=== PATIENT | male | born 1995 | race Caucasian/White ===

== ENCOUNTER 2017-10-16 05:11 | Emergency (ER) | payer MEDICAID ==
[~2017-10-16] VITALS: Ht 177.8 cm; Wt 68.2 kg
[2017-10-16 05:19] VITALS: Ht 177.8 cm; Wt 68.2 kg
[2017-10-16 05:53] LABS: BASOPHILS 0.2 % (0-2); EOSINOPHILS 3.3 % (0-7); HEMATOCRIT 44.3 % (42.0-54.0); HEMOGLOBIN 15.6 g/dL (13.5-17.5); IMMATURE GRANULOCYTES 0.2 % (0-5); LYMPHOCYTES 13.8 % (15-50); MCH 32.6 pg (26.0-34.0); MCHC 35.2 g/dL (31.0-37.0); MCV 92.5 fL (80.0-100.0); MEAN PLATELET VOLUME 11.2 fL (7.4-10.4); MONOCYTES 8.9 % (2-11); NEUTROPHILS 73.6 % (40-80); PLATELET COUNT 228 10x3/uL (130-400); RBC 4.79 10x6/uL (4.20-6.10); RDW 12.4 % (11.5-14.5); WBC 11.1 10x3/uL (4.8-10.8)
[2017-10-16 06:19] LABS: ALBUMIN 3.9 g/dL (3.4-5.0); ALKALINE PHOSPHATASE 57 U/L (46-116); ALT (SGPT) 28 U/L (10-68); AMYLASE - SERUM 35 U/L (25-115); BILIRUBIN - TOTAL 0.67 mg/dL (0.2-1.3); CALC OSMOLALITY 278 mosm/kg (275-300); CALCIUM 8.5 mg/dL (8.5-10.1); CHLORIDE - SERUM 104 mmol/L (98-107); GLUCOSE 127 mg/dL (74-106); LIPASE 98 U/L (73-393); POTASSIUM - SERUM 3.3 mmol/L (3.5-5.1); PROTEIN - SERUM 6.9 g/dL (6.4-8.2); SODIUM 139 mmol/L (136-145); UREA NITROGEN 11 mg/dL (7-18); eGFR NON AFRICAN AMERICAN > 90 mL/min (90-120)
[2017-10-16 07:15] LABS: APPEARANCE CLEAR (CLEAR); BILIRUBIN NEGATIVE (NEGATIVE); COLOR DK YELLOW (YELLOW); GLUCOSE NEGATIVE (NEGATIVE); KETONE MODERATE mg/dL (NEGATIVE); NITRITE NEGATIVE (NEGATIVE); PROTEIN NEGATIVE (NEGATIVE); SPECIFIC GRAVITY 1.025 (1.005-1.020); UROBILINOGEN NORMAL (NORMAL)
[2017-10-16] MEDS ORDERED: LEVAQUIN500 MG PO (09:09)
[2017-10-16] MEDS ORDERED: HYDROCODON-ACE1 EAC7 PO (09:09)
[2017-10-16 10:55] VITALS: BP 106/61
== END 2017-10-16 11:13 | disposition home or self-care (01) ==
LOC: D.ER 05:11
PROVIDERS: Family Medicine
DX: K52.9 Noninfective gastroenteritis and colitis, unspecified (principal); F17.200 Nicotine dependence, unspecified, uncomplicated

== ENCOUNTER 2018-02-17 09:51 | Emergency (ER) | payer MEDICAID ==
[~2018-02-17] VITALS: Ht 177.8 cm; Wt 65.9 kg
[~2018-02-17 09:51] MED LIST: HYDROCODON-ACE1 EAC7 PO; LEVAQUIN500 MG PO
[2018-02-17 09:54] VITALS: Ht 177.8 cm; Wt 65.9 kg
[2018-02-17] MEDS ORDERED: MOTRIN600 MG PEG (11:18)
[2018-02-17 11:57] VITALS: BP 97/56
== END 2018-02-17 11:50 | disposition home or self-care (01) ==
LOC: D.ER 09:51
DX: F07.81 Postconcussional syndrome (principal); W17.89XA Other fall from one level to another, initial encounter; Y93.89 Activity, other specified; Y92.89 Other specified places as the place of occurrence of the external cause

== ENCOUNTER 2019-02-23 08:45 | Emergency (ER) | payer SELFPAY ==
[~2019-02-23] VITALS: Ht 177.8 cm; Wt 68.2 kg
[~2019-02-23 08:45] MED LIST changes: +MOTRIN600 MG PEG
[2019-02-23 08:57] VITALS: Ht 177.8 cm; Wt 68.2 kg
[2019-02-23 10:56] VITALS: BP 118/71
== END 2019-02-23 10:59 | disposition home or self-care (01) ==
LOC: D.ER 08:45
DX: M25.562 Pain in left knee (principal); M25.571 Pain in right ankle and joints of right foot; M25.511 Pain in right shoulder